=== PATIENT | male | born 1995 | race American Indian/Alaskan Native ===

== ENCOUNTER 2018-11-23 13:30 | Emergency (ER) | payer OTHER ==
[2018-11-23] MEDS ORDERED: BENADRYL IV ONE (13:42)
[2018-11-23] MEDS ORDERED: DECADRON IV ONE (13:42)
[2018-11-23] MEDS ORDERED: PEPCID IV ONE (13:42)
--- NOTE | 2018-11-23 13:42 | Emergency Department Report ---
Blank Doc - Documentation Documentation: 23 y o Male presents with generalized hives from bee sting x 2 that just happe cher today states stinging pain at localized site as well as generalized no throat swelling or difficulty breathing meds ordered [facility] eval
[2018-11-23] MEDS ORDERED: NACL 0.9% 1000 ML 1,000 ML IV ONE (13:43)
--- NOTE | 2018-11-23 14:24 | Emergency Department Report ---
- General Chief complaint: Skin/Abscess/Foreign Body Stated complaint: BEE STING Time Seen by Provider: 11/23/18 13:38 Source: patient Mode of arrival: Ambulatory Limitations: No Limitations - History of Present Illness Initial comments: 23 y o Male presents with generalized hives from bee sting x 2 that just happened today states stinging pain at localized site as well as generalized no throat swelling or difficulty breathing meds ordered [facility] julio c JEAN complaint: insect bite/sting -: days(s) (3) Location: RUE Quality: burning, other (itching) Consistency: constant - Related Data Previous Rx's Medication Instructions Recorded Last Taken Type EPINEPHrine [Epipen] 0.3 mg IJ ONCE PRN #2 auto.injct 11/23/18 Unknown Rx diphenhydrAMINE [Benadryl CAP] 25 mg PO Q6HR PRN #24 capsule 11/23/18 Unknown Rx predniSONE [Deltasone] 40 mg PO QDAY #8 tab 11/23/18 Unknown Rx Allergies Allergy/AdvReac Type Severity Reaction Status Date / Time bee venom protein (honey bee) Allergy Swelling Verified 11/23/18 13:33 Abscess Boil HPI - HPI Chief Complaint: Skin/Abscess/Foreign Body Stated Complaint: BEE STING Time Seen by Provider: 11/23/18 13:38 Home Medications: Previous Rx's Medication Instructions Recorded Last Taken Type EPINEPHrine [Epipen] 0.3 mg IJ ONCE PRN #2 auto.injct 11/23/18 Unknown Rx diphenhydrAMINE [Benadryl CAP] 25 mg PO Q6HR PRN #24 capsule 11/23/18 Unknown Rx predniSONE [Deltasone] 40 mg PO QDAY #8 tab 11/23/18 Unknown Rx Allergies/Adverse Reactions: Allergies Allergy/AdvReac Type Severity Reaction Status Date / Time bee venom protein (honey bee) Allergy Swelling Verified 11/23/18 13:33 ED Review of Systems ROS: Stated complaint: BEE STING Other details as noted in HPI Comment: All other systems reviewed and negative ED Past Medical Hx - Past Medical History Previous Medical History?: No - Surgical History Past Surgical History?: No - Social History Smoking Status: Never Smoker Substance Use Type: None - Medications Home Medications: Home Medications Medication Instructions Recorded Confirmed Last Taken Type EPINEPHrine [Epipen] 0.3 mg IJ ONCE PRN #2 auto.injct 07/09/19 Unknown Rx diphenhydrAMINE [Benadryl CAP] 25 mg PO Q6HR PRN #24 capsule 11/23/18 Unknown Rx predniSONE [Deltasone] 40 mg PO QDAY #8 tab 11/23/18 Unknown Rx ED Physical Exam - General Limitations: No Limitations General appearance: alert, in no apparent distress - Head Head exam: Present: atraumatic, normocephalic - ENT ENT exam: Present: mucous membranes moist - Neck Neck exam: Present: normal inspection, full ROM - Respiratory Respiratory exam: Present: normal lung sounds bilaterally, other (taken in complete sentences). Absent: respiratory distress - Cardiovascular Cardiovascular Exam: Present: tachycardia - Neurological Exam Neurological exam: Present: alert, oriented X3 - Psychiatric Psychiatric exam: Present: normal affect, normal mood - Skin Skin exam: Present: urticaria (generalized) ED Course Vital Signs 11/23/18 13:38 Temperature 98.1 F Pulse Rate 107 H Blood Pressure 121/80 - Reevaluation(s) Reevaluation #1: 11/23/18 14:43 Patient reports he feels much better after having medications. ED Medical Decision Making - Medical Decision Making 23-year-old male presents to the emergency room complaining of a bee sting with localized swelling and itching to the right forearm left side of forehead with diffuse hives. Patient was given IV Pepcid and IV Benadryl and IV dexamethasone. Patient be discharged on Benadryl and Pepcid and prednisone. He should also be given a prescription for EpiPen. Critical care attestation.: If time is entered above; I have spent that time in minutes in the direct care of this critically ill patient, excluding procedure time. ED Disposition Clinical Impression: Allergic reaction to bee sting Disposition: DC-01 TO HOME OR SELFCARE Is pt being admited?: No Does the pt Need Aspirin: No Condition: Stable Instructions: Urticaria (ED), Insect Bite or Sting (ED) Additional Instructions: Use medications as prescribed. He is EpiPen only as needed for allergic reaction consisting of throat closing chest pain or shortness of breathing. Prescriptions: diphenhydrAMINE [Benadryl CAP] 25 mg PO Q6HR PRN #24 capsule PRN Reason: Allergic Reaction predniSONE [Deltasone] 40 mg PO QDAY #8 tab EPINEPHrine [Epipen] 0.3 mg IJ ONCE PRN #2 auto.injct PRN Reason: Allergic Reaction Referrals: BRIAN ROSAS MD [Primary Care Provider] - 3-5 Days Forms: Work/School Release Form(ED)
[2018-11-23 14:42] VITALS: BP 115/71
== END 2018-11-23 14:41 | disposition home or self-care (01) ==
LOC: ED 13:30
DX: T63.441A Toxic effect of venom of bees, accidental (unintentional), initial encounter (principal); L50.9 Urticaria, unspecified; Z91.030 Bee allergy status; Y92.89 Other specified places as the place of occurrence of the external cause
CPT/HCPCS: 96374; 96375; 99282; J1100; J1200; J7030